=== PATIENT | male | born 1950 | race Caucasian/White ===

== ENCOUNTER → 2017-06-28 14:19 | Outpatient (CLI) | payer MEDICARE, SELFPAY ==
[2017-06-28 15:37] LABS: Protein, Urine (Random) 48.8 mg/dL (<11.9); Protein:Creat Ratio 833 mg/g CRE (0-200)
[2017-06-28 15:48] LABS: BUN 32 mg/dL (7-18); Creatinine, Serum 1.55 mg/dL (0.70-1.30); Glucose 72 mg/dL (74-106)
[2017-06-28 15:49] LABS: Albumin, Serum 3.4 g/dL (3.2-5.0); BUN/Creat Ratio 20.6 RATIO (10-20); Calcium,Total 8.4 mg/dL (8.5-10.1); Chloride 110 mmol/L (98-107); EST Glomerular Filtration Rate 48 mL/min (>60); Est Glom Filt Rate - Afr Amer 57 mL/min (>60); Phosphorus 2.9 mg/dL (2.5-4.9); Potassium 5.2 mmol/L (3.5-5.1); Sodium Level 141 mmol/L (136-145)
[2017-06-28 15:59] LABS: PTHIN 211.6 pg/mL (18.4-80.1)
== END ==
PROVIDERS: Family Provider Family Medicine Geriatric Medicine; PCP Family Medicine Geriatric Medicine; Visit Provider Internal Medicine Nephrology
DX: N18.3 Chronic kidney disease, stage 3 (moderate) (principal); N17.9 Acute kidney failure, unspecified
CPT/HCPCS: 36415; 80069; 82570; 83970; 84156

== ENCOUNTER → 2017-10-26 12:52 | Outpatient (CLI) | payer MEDICARE, SELFPAY ==
[2017-10-26 13:52] LABS: Albumin, Serum 3.5 g/dL (3.2-5.0); BUN 38 mg/dL (7-18); Calcium,Total 8.3 mg/dL (8.5-10.1); Chloride 111 mmol/L (98-107); Creatinine, Serum 1.73 mg/dL (0.70-1.30); EST Glomerular Filtration Rate 42 mL/min (>60); Est Glom Filt Rate - Afr Amer 51 mL/min (>60); Glucose 134 mg/dL (74-106); Phosphorus 2.8 mg/dL (2.5-4.9); Potassium 4.8 mmol/L (3.5-5.1); Sodium Level 142 mmol/L (136-145)
[2017-10-26 14:00] LABS: PTHIN 263.1 pg/mL (18.4-80.1)
[2017-10-26 14:01] LABS: Vitamin D,25 Hydroxy 46.5 ng/mL (29.95-100.01)
== END ==
PROVIDERS: Family Provider Family Medicine Geriatric Medicine; PCP Family Medicine Geriatric Medicine; Visit Provider Internal Medicine Nephrology
DX: N17.9 Acute kidney failure, unspecified (principal); E55.9 Vitamin D deficiency, unspecified; N25.81 Secondary hyperparathyroidism of renal origin
CPT/HCPCS: 36415; 80069; 82306; 83970

== ENCOUNTER → 2017-11-02 11:15 | Outpatient (CLI) | payer MEDICARE, SELFPAY ==
[2017-11-02 12:47] LABS: Absolute Lymphocyte Count 1.05 X10^3/ul (0.83-4.51); Absolute Neutrophil Count 4.2 X10^3/uL (2.0-7.7); Basophil# 0.01 X10^3/uL; Basophil% 0.2 % (0-1); Eosinophil# 0.43 X10^3/uL; Eosinophils% 7.1 % (0-5); Hematocrit 44.5 % (40-54); Hemoglobin 14.5 g/dl (13.0-16.5); Lymphocyte # 1.05 X10^3/ul (4.0); Lymphocyte % 17.4 % (19-41); Mean Corp Hgb Conc 32.6 g/gl (32-36); Mean Corpuscular Volume 98.2 fL (80-94); Mean Platelet Vol. 9.7 fl (6.2-12.0); Monocyte# 0.37 X10^3/uL; Monocyte% 6.1 % (0-10); Neutrophil # 4.19 X10^3/uL (2.7-7.7); Neutrophil % 69.2 % (47-70); POSITIVE COUNT NO; POSITIVE DIFFERENTIAL NO; POSITIVE MORPHOLOGY NO; Platelet Count 176 K/mm3 (150-450); RBC Distribution Width CV 13.2 % (11.6-14.6); Red Blood Count 4.53 M/mm3 (4.6-6.2); White Blood Count 6.1 K/mm3 (4.4-11.0)
[2017-11-02 13:10] LABS: ALB/GLOB Ratio 0.9 RATIO (0.9-2.4); AST(SGOT) 19 U/L (15-37); Alanine Aminotransfer ALT/SGPT 30 U/L (16-61); Albumin, Serum 3.2 g/dL (3.2-5.0); Alkaline Phosphatase 125 U/L (45-117); Anion Gap 7 (5-15); BUN 23 mg/dL (7-18); Calcium,Total 7.9 mg/dL (8.5-10.1); Chloride 108 mmol/L (98-107); Creatinine, Serum 1.44 mg/dL (0.70-1.30); EST Glomerular Filtration Rate 52 mL/min (>60); Est Glom Filt Rate - Afr Amer 62 mL/min (>60); Globulin 3.6 g/dL (2.2-4.2); Glucose 112 mg/dL (74-106); Protein, Total 6.8 g/dL (6.4-8.2); Sodium Level 138 mmol/L (136-145); Thyroid Stim Hormone (TSH) 3.42 uIU/mL (0.358-3.74)
[2017-11-03 09:02] LABS: Vitamin D,25 Hydroxy 35.4 ng/mL (29.95-100.01)
== END ==
PROVIDERS: Family Provider Family Medicine Geriatric Medicine; PCP Family Medicine Geriatric Medicine; Visit Provider Family Medicine Geriatric Medicine
DX: E11.9 Type 2 diabetes mellitus without complications (principal); I10 Essential (primary) hypertension; E55.9 Vitamin D deficiency, unspecified
CPT/HCPCS: 36415; 80053; 82306; 84443; 85025

== ENCOUNTER → 2018-02-27 11:32 | Outpatient (CLI) | payer MEDICARE, SELFPAY ==
[2018-02-27 12:30] LABS: Hematocrit 43.4 % (40-54); Hemoglobin 14.2 g/dl (13.0-16.5); Mean Corp Hgb Conc 32.7 g/gl (32-36); Mean Corpuscular Hgb 31.9 pg (27.0-32.0); Mean Corpuscular Volume 97.5 fL (80-94); Mean Platelet Vol. 9.9 fl (6.2-12.0); Platelet Count 167 K/mm3 (150-450); RBC Distribution Width CV 13.1 % (11.6-14.6); RBC Distribution Width SD 46.6 fl (35.1-43.9); Red Blood Count 4.45 M/mm3 (4.6-6.2)
[2018-02-27 12:33] LABS: Scan Indicated on CBC? Y/N NO
[2018-02-27 12:52] LABS: Albumin, Serum 3.2 g/dL (3.2-5.0); BUN 36 mg/dL (7-18); BUN/Creat Ratio 23.1 RATIO (10-20); Calcium,Total 8.1 mg/dL (8.5-10.1); Chloride 106 mmol/L (98-107); Creatinine, Serum 1.56 mg/dL (0.70-1.30); EST Glomerular Filtration Rate 47 mL/min (>60); Est Glom Filt Rate - Afr Amer 57 mL/min (>60); Glucose 136 mg/dL (74-106); Potassium 4.5 mmol/L (3.5-5.1); Sodium Level 137 mmol/L (136-145)
[2018-02-27 12:53] LABS: Protein, Urine (Random) 23.4 mg/dL (<11.9); Protein:Creat Ratio 619 mg/g CRE (0-200)
[2018-02-27 12:59] LABS: PTHIN 186.9 pg/mL (18.4-80.1)
== END ==
PROVIDERS: Family Provider Family Medicine Geriatric Medicine; PCP Family Medicine Geriatric Medicine; Referring Provider Internal Medicine Nephrology; Visit Provider Internal Medicine Nephrology
DX: E11.22 Type 2 diabetes mellitus with diabetic chronic kidney disease (principal); N18.3 Chronic kidney disease, stage 3 (moderate); N25.81 Secondary hyperparathyroidism of renal origin
CPT/HCPCS: 36415; 80069; 82570; 83970; 84156; 85027

== ENCOUNTER → 2018-03-07 11:29 | Outpatient (CLI) | payer MEDICARE, SELFPAY ==
[2018-03-07 12:40] LABS: Absolute Lymphocyte Count 1.25 X10^3/ul (0.83-4.51); Absolute Neutrophil Count 5.5 X10^3/uL (2.0-7.7); Basophil# 0.02 X10^3/uL; Basophil% 0.3 % (0-1); Eosinophil# 0.49 X10^3/uL; Eosinophils% 6.4 % (0-5); Hematocrit 44.5 % (40-54); Hemoglobin 14.7 g/dl (13.0-16.5); Lymphocyte # 1.25 X10^3/ul (4.0); Lymphocyte % 16.2 % (19-41); Mean Corpuscular Hgb 32.4 pg (27.0-32.0); Monocyte# 0.44 X10^3/uL; Monocyte% 5.7 % (0-10); Neutrophil % 71.3 % (47-70); Platelet Count 186 K/mm3 (150-450); RBC Distribution Width CV 12.9 % (11.6-14.6); RBC Distribution Width SD 44.8 fl (35.1-43.9); Red Blood Count 4.54 M/mm3 (4.6-6.2); White Blood Count 7.7 K/mm3 (4.4-11.0)
[2018-03-07 12:50] LABS: POSITIVE COUNT NO; POSITIVE DIFFERENTIAL NO; POSITIVE MORPHOLOGY NO
[2018-03-07 13:12] LABS: ALB/GLOB Ratio 0.9 RATIO (0.9-2.4); AST(SGOT) 20 U/L (15-37); Alanine Aminotransfer ALT/SGPT 32 U/L (16-61); Albumin, Serum 3.3 g/dL (3.2-5.0); Alkaline Phosphatase 116 U/L (45-117); Anion Gap 9 (5-15); BUN 47 mg/dL (7-18); BUN/Creat Ratio 26.9 RATIO (10-20); Calcium,Total 8.4 mg/dL (8.5-10.1); Chloride 107 mmol/L (98-107); Creatinine, Serum 1.75 mg/dL (0.70-1.30); EST Glomerular Filtration Rate 41 mL/min (>60); Est Glom Filt Rate - Afr Amer 50 mL/min (>60); Globulin 3.7 g/dL (2.2-4.2); Glucose 173 mg/dL (74-106); PSA,Total - Annual Screen 0.93 ng/mL (0.00-4.00); Potassium 4.8 mmol/L (3.5-5.1); Sodium Level 140 mmol/L (136-145); Thyroid Stim Hormone (TSH) 3.36 uIU/mL (0.358-3.74)
[2018-03-08 08:20] LABS: Hep C Antibodies 0.2 s/co ratio (0.0-0.9)
== END ==
PROVIDERS: Family Provider Family Medicine Geriatric Medicine; PCP Family Medicine Geriatric Medicine; Visit Provider Family Medicine Geriatric Medicine
DX: E11.9 Type 2 diabetes mellitus without complications (principal); I10 Essential (primary) hypertension; E55.9 Vitamin D deficiency, unspecified; Z12.5 Encounter for screening for malignant neoplasm of prostate
CPT/HCPCS: 36415; 80053; 82306; 84153; 84443; 85025; 86803; G0103

== ENCOUNTER → 2018-09-07 14:26 | Outpatient (CLI) | payer MEDICARE, SELFPAY ==
[2018-09-07 15:48] LABS: Protein, Urine (Random) 55.9 mg/dL (<11.9); Protein:Creat Ratio 1495 mg/g CRE (0-200)
[2018-09-07 16:13] LABS: Albumin, Serum 3.4 g/dL (3.2-5.0); BUN 23 mg/dL (7-18); BUN/Creat Ratio 16.1 RATIO (10-20); Calcium,Total 8.1 mg/dL (8.5-10.1); Chloride 110 mmol/L (98-107); Creatinine, Serum 1.43 mg/dL (0.70-1.30); EST Glomerular Filtration Rate 52 mL/min (>60); Est Glom Filt Rate - Afr Amer 63 mL/min (>60); Glucose 103 mg/dL (74-106); Phosphorus 2.2 mg/dL (2.5-4.9); Potassium 4.4 mmol/L (3.5-5.1); Sodium Level 139 mmol/L (136-145)
[2018-09-07 16:25] LABS: PTHIN 275.9 pg/mL (18.4-80.1)
== END ==
PROVIDERS: Family Provider Family Medicine Geriatric Medicine; PCP Family Medicine Geriatric Medicine; Referring Provider Internal Medicine Nephrology; Visit Provider Internal Medicine Nephrology
DX: E11.22 Type 2 diabetes mellitus with diabetic chronic kidney disease (principal); N18.3 Chronic kidney disease, stage 3 (moderate); N25.81 Secondary hyperparathyroidism of renal origin
CPT/HCPCS: 36415; 80069; 82570; 83970; 84156

== ENCOUNTER → 2018-09-12 11:48 | Outpatient (CLI) | payer MEDICARE, SELFPAY ==
[2018-09-12 13:18] LABS: Absolute Lymphocyte Count 1.24 X10^3/ul (0.83-4.51); Absolute Neutrophil Count 5.3 X10^3/uL (2.0-7.7); Basophil# 0.03 X10^3/uL; Basophil% 0.4 % (0-1); Eosinophil# 0.42 X10^3/uL; Eosinophils% 5.7 % (0-5); Hematocrit 44.9 % (40-54); Hemoglobin 14.9 g/dl (13.0-16.5); Lymphocyte # 1.24 X10^3/ul (4.0); Lymphocyte % 16.8 % (19-41); Mean Corp Hgb Conc 33.2 g/gl (32-36); Mean Corpuscular Volume 96.4 fL (80-94); Mean Platelet Vol. 9.9 fl (6.2-12.0); Monocyte% 5.4 % (0-10); Neutrophil # 5.27 X10^3/uL (2.7-7.7); Neutrophil % 71.4 % (47-70); Platelet Count 179 K/mm3 (150-450); RBC Distribution Width CV 13.4 % (11.6-14.6); RBC Distribution Width SD 46.6 fl (35.1-43.9); Red Blood Count 4.66 M/mm3 (4.6-6.2); White Blood Count 7.4 K/mm3 (4.4-11.0)
[2018-09-12 13:25] LABS: POSITIVE COUNT NO; POSITIVE DIFFERENTIAL NO; POSITIVE MORPHOLOGY NO
[2018-09-12 13:32] LABS: ALB/GLOB Ratio 0.9 RATIO (0.9-2.4); AST(SGOT) 23 U/L (15-37); Alanine Aminotransfer ALT/SGPT 27 U/L (16-61); Albumin, Serum 3.2 g/dL (3.2-5.0); Alkaline Phosphatase 126 U/L (45-117); Anion Gap 5 (5-15); BUN 28 mg/dL (7-18); BUN/Creat Ratio 17.8 RATIO (10-20); Calcium,Total 8.6 mg/dL (8.5-10.1); Chloride 111 mmol/L (98-107); Creatinine, Serum 1.57 mg/dL (0.70-1.30); EST Glomerular Filtration Rate 47 mL/min (>60); Est Glom Filt Rate - Afr Amer 56 mL/min (>60); Globulin 3.7 g/dL (2.2-4.2); Glucose 140 mg/dL (74-106); Potassium 5.2 mmol/L (3.5-5.1); Protein, Total 6.9 g/dL (6.4-8.2); Sodium Level 138 mmol/L (136-145); Thyroid Stim Hormone (TSH) 3.56 uIU/mL (0.358-3.74)
[2018-09-12 13:49] LABS: Vitamin D,25 Hydroxy 46.2 ng/mL (29.95-100.01)
== END ==
PROVIDERS: Family Provider Family Medicine Geriatric Medicine; PCP Family Medicine Geriatric Medicine; Visit Provider Family Medicine Geriatric Medicine
DX: E11.9 Type 2 diabetes mellitus without complications (principal); I10 Essential (primary) hypertension; E55.9 Vitamin D deficiency, unspecified
CPT/HCPCS: 36415; 80053; 82306; 84403; 84443; 85025

== ENCOUNTER → 2018-10-19 13:37 | Outpatient (CLI) | payer MEDICARE, SELFPAY ==
[2018-10-19 15:18] LABS: Anion Gap 9 (5-15); BUN 24 mg/dL (7-18); BUN/Creat Ratio 15.4 RATIO (10-20); Calcium,Total 8.5 mg/dL (8.5-10.1); Chloride 109 mmol/L (98-107); Creatinine, Serum 1.56 mg/dL (0.70-1.30); EST Glomerular Filtration Rate 47 mL/min (>60); Est Glom Filt Rate - Afr Amer 57 mL/min (>60); Glucose 101 mg/dL (74-106); Potassium 4.3 mmol/L (3.5-5.1); Sodium Level 141 mmol/L (136-145)
== END ==
PROVIDERS: Family Provider Family Medicine Geriatric Medicine; PCP Family Medicine Geriatric Medicine; Referring Provider Internal Medicine Nephrology; Visit Provider Internal Medicine Nephrology
DX: E87.5 Hyperkalemia (principal)
CPT/HCPCS: 36415; 80048

== ENCOUNTER → 2019-02-15 14:31 | Outpatient (CLI) | payer MEDICARE, SELFPAY ==
[2019-02-15 15:05] LABS: Protein, Urine (Random) 37.8 mg/dL (<11.9); Protein:Creat Ratio 977 mg/g CRE (0-200)
[2019-02-15 15:21] LABS: Albumin, Serum 3.5 g/dL (3.2-5.0); BUN 26 mg/dL (7-18); BUN/Creat Ratio 17.8 RATIO (10-20); Calcium,Total 9.2 mg/dL (8.5-10.1); Chloride 108 mmol/L (98-107); Creatinine, Serum 1.46 mg/dL (0.70-1.30); EST Glomerular Filtration Rate 51 mL/min (>60); Est Glom Filt Rate - Afr Amer 61 mL/min (>60); Glucose 117 mg/dL (74-106); Phosphorus 3.4 mg/dL (2.5-4.9); Potassium 4.4 mmol/L (3.5-5.1); Sodium Level 138 mmol/L (136-145)
[2019-02-15 15:31] LABS: PTHIN 71.5 pg/mL (18.4-80.1); Vitamin D,25 Hydroxy 43.9 ng/mL (29.95-100.01)
== END ==
PROVIDERS: Family Provider Family Medicine Geriatric Medicine; PCP Family Medicine Geriatric Medicine; Referring Provider Internal Medicine Nephrology; Visit Provider Internal Medicine Nephrology
DX: E11.22 Type 2 diabetes mellitus with diabetic chronic kidney disease (principal); N18.3 Chronic kidney disease, stage 3 (moderate); N25.81 Secondary hyperparathyroidism of renal origin; E55.9 Vitamin D deficiency, unspecified
CPT/HCPCS: 36415; 80069; 82306; 82570; 83970; 84156

== ENCOUNTER → 2019-03-12 11:56 | Outpatient (CLI) | payer MEDICARE, SELFPAY ==
[2019-03-12 12:42] LABS: Absolute Lymphocyte Count 1.09 X10^3/uL (0.83-4.51); Basophil# 0.04 X10^3/uL; Basophil% 0.6 % (0-1); Eosinophil# 0.59 X10^3/uL; Eosinophils% 8.3 % (0-5); Hematocrit 43.6 % (40-54); Hemoglobin 14.6 g/dL (13.0-16.5); Lymphocyte # 1.09 X10^3/ul (4.0); Lymphocyte % 15.4 % (19-41); Mean Corp Hgb Conc 33.5 g/dL (32-36); Mean Corpuscular Hgb 32.9 pg (27.0-32.0); Mean Corpuscular Volume 98.2 fL (80-94); Monocyte% 5.6 % (0-10); NRBC Flagged by Analyzer 0 % (0-5); Neutrophil # 4.95 X10^3/uL (2.7-7.7); Neutrophil % 69.8 % (47-70); Platelet Count 159 K/mm3 (150-450); RBC Distribution Width CV 12.6 % (11.6-14.6); RBC Distribution Width SD 45.5 fl (35.1-43.9); Red Blood Count 4.44 M/mm3 (4.6-6.2); White Blood Count 7.1 K/mm3 (4.4-11.0)
[2019-03-12 13:04] LABS: Vitamin D,25 Hydroxy 48.5 ng/mL (29.95-100.01)
[2019-03-12 13:17] LABS: ALB/GLOB Ratio 0.9 RATIO (0.9-2.4); AST(SGOT) 25 U/L (15-37); Alanine Aminotransfer ALT/SGPT 26 U/L (16-61); Albumin, Serum 3.3 g/dL (3.2-5.0); Alkaline Phosphatase 94 U/L (45-117); Anion Gap 8 (5-15); BUN 37 mg/dL (7-18); BUN/Creat Ratio 21.6 RATIO (10-20); Calcium,Total 8.9 mg/dL (8.5-10.1); Chloride 106 mmol/L (98-107); Creatinine, Serum 1.71 mg/dL (0.70-1.30); EST Glomerular Filtration Rate 42 mL/min (>60); Est Glom Filt Rate - Afr Amer 51 mL/min (>60); Globulin 3.5 g/dL (2.2-4.2); Glucose 162 mg/dL (74-106); PSA,Total - Annual Screen 0.81 ng/mL (0.00-4.00); Potassium 4.3 mmol/L (3.5-5.1); Protein, Total 6.8 g/dL (6.4-8.2); Sodium Level 137 mmol/L (136-145); Thyroid Stim Hormone (TSH) 3.18 uIU/mL (0.358-3.74)
== END ==
PROVIDERS: Family Provider Family Medicine Geriatric Medicine; PCP Family Medicine Geriatric Medicine; Visit Provider Family Medicine Geriatric Medicine
DX: E11.9 Type 2 diabetes mellitus without complications (principal); I10 Essential (primary) hypertension; E55.9 Vitamin D deficiency, unspecified; Z12.5 Encounter for screening for malignant neoplasm of prostate
CPT/HCPCS: 36415; 80053; 82306; 84153; 84443; 85025; G0103

== ENCOUNTER → 2019-04-25 11:51 | Outpatient (CLI) | payer MEDICARE, SELFPAY ==
[2019-04-25 13:07] LABS: PTHIN 117.4 pg/mL (18.4-80.1)
== END ==
PROVIDERS: Family Provider Family Medicine Geriatric Medicine; PCP Family Medicine Geriatric Medicine; Visit Provider Internal Medicine Nephrology
DX: N25.81 Secondary hyperparathyroidism of renal origin (principal)
CPT/HCPCS: 36415; 83970

== ENCOUNTER → 2019-09-12 14:18 | Outpatient (CLI) | payer MEDICARE, SELFPAY ==
[2019-09-12 15:10] LABS: Protein, Urine (Random) 63.6 mg/dL (<11.9); Protein:Creat Ratio 1078 mg/g CRE (0-200)
[2019-09-12 15:31] LABS: Albumin, Serum 3.1 g/dL (3.2-5.0); BUN 34 mg/dL (7-18); BUN/Creat Ratio 21.5 RATIO (10-20); Calcium,Total 8.2 mg/dL (8.5-10.1); Chloride 112 mmol/L (98-107); Creatinine, Serum 1.58 mg/dL (0.70-1.30); EST Glomerular Filtration Rate 46 mL/min (>60); Est Glom Filt Rate - Afr Amer 56 mL/min (>60); Glucose 112 mg/dL (74-106); Potassium 4.8 mmol/L (3.5-5.1); Sodium Level 140 mmol/L (136-145)
[2019-09-12 15:34] LABS: Vitamin D,25 Hydroxy 40.8 ng/mL
[2019-09-13 08:48] LABS: PTHIN 171.7 pg/mL (18.4-80.1)
== END ==
PROVIDERS: PCP Family Medicine Geriatric Medicine; Visit Provider Internal Medicine Nephrology
DX: E11.22 Type 2 diabetes mellitus with diabetic chronic kidney disease (principal); N18.3 Chronic kidney disease, stage 3 (moderate); N25.81 Secondary hyperparathyroidism of renal origin; E55.9 Vitamin D deficiency, unspecified
CPT/HCPCS: 36415; 80069; 82306; 82570; 83970; 84156

== ENCOUNTER → 2019-09-17 12:15 | Outpatient (CLI) | payer MEDICARE, SELFPAY ==
[2019-09-17 12:54] LABS: Absolute Lymphocyte Count 1.34 X10^3/uL (0.83-4.51); Absolute Neutrophil Count 4.4 X10^3/uL (2.0-7.7); Basophil# 0.03 X10^3/uL; Basophil% 0.5 % (0-1); Eosinophil# 0.25 X10^3/uL; Eosinophils% 3.9 % (0-5); Hematocrit 43.3 % (40-54); Lymphocyte # 1.34 X10^3/ul (4.0); Lymphocyte % 20.7 % (19-41); Mean Corp Hgb Conc 32.3 g/dL (32-36); Mean Corpuscular Hgb 32.2 pg (27.0-32.0); Mean Corpuscular Volume 99.5 fL (80-94); Mean Platelet Vol. 9.6 fl (6.2-12.0); Monocyte# 0.47 X10^3/uL; Monocyte% 7.3 % (0-10); NRBC Flagged by Analyzer 0 % (0-5); Neutrophil # 4.37 X10^3/uL (2.7-7.7); Neutrophil % 67.3 % (47-70); Platelet Count 166 K/mm3 (150-450); RBC Distribution Width CV 13.1 % (11.6-14.6); RBC Distribution Width SD 47.9 fl (35.1-43.9); Red Blood Count 4.35 M/mm3 (4.6-6.2); White Blood Count 6.5 K/mm3 (4.4-11.0)
[2019-09-17 13:17] LABS: ALB/GLOB Ratio 0.8 RATIO (0.9-2.4); AST(SGOT) 26 U/L (15-37); Alanine Aminotransfer ALT/SGPT 28 U/L (16-61); Albumin, Serum 2.9 g/dL (3.2-5.0); Alkaline Phosphatase 108 U/L (45-117); Anion Gap 7 (5-15); BUN 39 mg/dL (7-18); BUN/Creat Ratio 21.5 RATIO (10-20); Calcium,Total 8.3 mg/dL (8.5-10.1); Chloride 108 mmol/L (98-107); Creatinine, Serum 1.81 mg/dL (0.70-1.30); EST Glomerular Filtration Rate 39 mL/min (>60); Est Glom Filt Rate - Afr Amer 48 mL/min (>60); Globulin 3.5 g/dL (2.2-4.2); Glucose 109 mg/dL (74-106); Potassium 4.9 mmol/L (3.5-5.1); Protein, Total 6.4 g/dL (6.4-8.2); Sodium Level 136 mmol/L (136-145); Thyroid Stim Hormone (TSH) 2.48 uIU/mL (0.358-3.74)
[2019-09-17 13:29] LABS: Vitamin D,25 Hydroxy 39.6 ng/mL
== END ==
PROVIDERS: PCP Family Medicine Geriatric Medicine; Visit Provider Family Medicine Geriatric Medicine
DX: E11.9 Type 2 diabetes mellitus without complications (principal); E55.9 Vitamin D deficiency, unspecified; I10 Essential (primary) hypertension
CPT/HCPCS: 36415; 80053; 82306; 84443; 85025

== ENCOUNTER → 2019-10-17 15:03 | Outpatient (CLI) | payer MEDICARE, SELFPAY ==
[2019-10-17 17:14] LABS: Albumin, Serum 3.1 g/dL (3.2-5.0); BUN 32 mg/dL (7-18); BUN/Creat Ratio 21.5 RATIO (10-20); Calcium,Total 8.6 mg/dL (8.5-10.1); Chloride 105 mmol/L (98-107); Creatinine, Serum 1.49 mg/dL (0.70-1.30); EST Glomerular Filtration Rate 49 mL/min (>60); Est Glom Filt Rate - Afr Amer 60 mL/min (>60); Glucose 135 mg/dL (74-106); Phosphorus 2.8 mg/dL (2.5-4.9); Potassium 4.1 mmol/L (3.5-5.1); Sodium Level 138 mmol/L (136-145)
== END ==
PROVIDERS: PCP Family Medicine Geriatric Medicine; Referring Provider Internal Medicine Nephrology; Visit Provider Internal Medicine Nephrology
DX: N18.3 Chronic kidney disease, stage 3 (moderate) (principal); N25.81 Secondary hyperparathyroidism of renal origin
CPT/HCPCS: 36415; 80069

== ENCOUNTER → 2020-01-17 14:21 | Outpatient (CLI) | payer MEDICARE, SELFPAY ==
[2020-01-17 15:11] LABS: Albumin, Serum 3.4 g/dL (3.2-5.0); BUN 22 mg/dL (7-18); BUN/Creat Ratio 14.6 RATIO (10-20); Chloride 107 mmol/L (98-107); Creatinine, Serum 1.51 mg/dL (0.70-1.30); EST Glomerular Filtration Rate 49 mL/min (>60); Est Glom Filt Rate - Afr Amer 59 mL/min (>60); Glucose 160 mg/dL (74-106); PTHIN 192.8 pg/mL (18.4-80.1); Phosphorus 2.6 mg/dL (2.5-4.9); Potassium 4.7 mmol/L (3.5-5.1); Sodium Level 138 mmol/L (136-145)
== END ==
PROVIDERS: PCP Family Medicine Geriatric Medicine; Referring Provider Internal Medicine Nephrology; Visit Provider Internal Medicine Nephrology
DX: N18.3 Chronic kidney disease, stage 3 (moderate) (principal); N25.81 Secondary hyperparathyroidism of renal origin
CPT/HCPCS: 36415; 80069; 83970

== ENCOUNTER → 2020-03-17 10:59 | Outpatient (CLI) | payer MEDICARE, SELFPAY ==
[2020-03-17 12:14] LABS: Absolute Lymphocyte Count 1.62 X10^3/uL (0.83-4.51); Absolute Neutrophil Count 6.1 X10^3/uL (2.0-7.7); Basophil# 0.03 X10^3/uL; Basophil% 0.3 % (0-1); Eosinophil# 0.42 X10^3/uL; Eosinophils% 4.8 % (0-5); Hematocrit 45.7 % (40-54); Lymphocyte # 1.62 X10^3/ul (4.0); Lymphocyte % 18.6 % (19-41); Mean Corp Hgb Conc 32.8 g/dL (32-36); Mean Corpuscular Hgb 32.8 pg (27.0-32.0); Mean Corpuscular Volume 99.8 fL (80-94); Monocyte# 0.58 X10^3/uL; Monocyte% 6.7 % (0-10); NRBC Flagged by Analyzer 0 % (0-5); Neutrophil # 6.05 X10^3/uL (2.7-7.7); Neutrophil % 69.4 % (47-70); Platelet Count 203 K/mm3 (150-450); RBC Distribution Width CV 13.1 % (11.6-14.6); RBC Distribution Width SD 47.8 fl (35.1-43.9); Red Blood Count 4.58 M/mm3 (4.6-6.2); White Blood Count 8.7 K/mm3 (4.4-11.0)
[2020-03-17 12:32] LABS: Vitamin D,25 Hydroxy 57.3 ng/mL
[2020-03-17 12:33] LABS: ALB/GLOB Ratio 0.9 RATIO (0.9-2.4); AST(SGOT) 23 U/L (15-37); Alanine Aminotransfer ALT/SGPT 30 U/L (16-61); Albumin, Serum 3.3 g/dL (3.2-5.0); Alkaline Phosphatase 132 U/L (45-117); Anion Gap 9 (5-15); BUN 35 mg/dL (7-18); BUN/Creat Ratio 20.6 RATIO (10-20); Calcium,Total 8.6 mg/dL (8.5-10.1); Chloride 108 mmol/L (98-107); EST Glomerular Filtration Rate 42 mL/min (>60); Est Glom Filt Rate - Afr Amer 51 mL/min (>60); Globulin 3.6 g/dL (2.2-4.2); Glucose 176 mg/dL (74-106); Potassium 4.6 mmol/L (3.5-5.1); Protein, Total 6.9 g/dL (6.4-8.2); Sodium Level 138 mmol/L (136-145); Thyroid Stim Hormone (TSH) 3.67 uIU/mL (0.358-3.74)
== END ==
PROVIDERS: PCP Family Medicine Geriatric Medicine; Visit Provider Family Medicine Geriatric Medicine
DX: I10 Essential (primary) hypertension (principal); E11.9 Type 2 diabetes mellitus without complications; E55.9 Vitamin D deficiency, unspecified
CPT/HCPCS: 36415; 80053; 82306; 84443; 85025

== ENCOUNTER → 2020-07-01 14:41 | Outpatient (CLI) | payer MEDICARE, SELFPAY ==
[2020-07-01 16:34] LABS: Albumin, Serum 2.9 g/dL (3.2-5.0); BUN 34 mg/dL (7-18); BUN/Creat Ratio 20.2 RATIO (10-20); Calcium,Total 8.2 mg/dL (8.5-10.1); Chloride 109 mmol/L (98-107); Creatinine, Serum 1.68 mg/dL (0.70-1.30); EST Glomerular Filtration Rate 43 mL/min (>60); Est Glom Filt Rate - Afr Amer 52 mL/min (>60); Glucose 108 mg/dL (74-106); Phosphorus 2.9 mg/dL (2.5-4.9); Potassium 4.4 mmol/L (3.5-5.1); Sodium Level 141 mmol/L (136-145); Vitamin D,25 Hydroxy 34.6 ng/mL
[2020-07-02 08:29] LABS: PTHIN 158.5 pg/mL (18.4-80.1)
== END ==
PROVIDERS: PCP Family Medicine Geriatric Medicine; Visit Provider Internal Medicine Nephrology
DX: E11.22 Type 2 diabetes mellitus with diabetic chronic kidney disease (principal); N18.30 Chronic kidney disease, stage 3 unspecified; E55.9 Vitamin D deficiency, unspecified; N25.81 Secondary hyperparathyroidism of renal origin
CPT/HCPCS: 36415; 80069; 82306; 83970

== ENCOUNTER → 2020-07-07 11:53 | Outpatient (CLI) | payer MEDICARE, SELFPAY ==
[2020-07-07 12:39] LABS: Protein, Urine (Random) 232.9 mg/dL (<11.9); Protein:Creat Ratio 3164 mg/g CRE (0-200)
== END ==
PROVIDERS: PCP Family Medicine Geriatric Medicine; Visit Provider Family Medicine Geriatric Medicine
DX: E11.22 Type 2 diabetes mellitus with diabetic chronic kidney disease (principal); N18.30 Chronic kidney disease, stage 3 unspecified; N25.81 Secondary hyperparathyroidism of renal origin
CPT/HCPCS: 82570; 84156

== ENCOUNTER → 2020-08-11 15:44 | Outpatient (CLI) | payer MEDICARE, SELFPAY ==
[2020-08-11 17:08] LABS: PSA,Total - Annual Screen 0.71 ng/mL (0.00-4.00)
== END ==
PROVIDERS: PCP Family Medicine Geriatric Medicine; Referring Provider Urology; Visit Provider Urology
DX: Z12.5 Encounter for screening for malignant neoplasm of prostate (principal)
CPT/HCPCS: 36415; 84153; G0103

== ENCOUNTER → 2020-09-15 12:01 | Outpatient (CLI) | payer MEDICARE, SELFPAY ==
[2020-09-15 12:23] LABS: Absolute Lymphocyte Count 1.21 X10^3/uL (0.83-4.51); Absolute Neutrophil Count 4.6 X10^3/uL (2.0-7.7); Basophil# 0.03 X10^3/uL; Basophil% 0.4 % (0-1); Eosinophil# 0.42 X10^3/uL; Eosinophils% 6.2 % (0-5); Hemoglobin 14.3 g/dL (13.0-16.5); Lymphocyte # 1.21 X10^3/ul (0.83-4.51); Lymphocyte % 17.9 % (19-41); Mean Corp Hgb Conc 32.5 g/dL (32-36); Mean Corpuscular Hgb 31.6 pg (27.0-32.0); Mean Corpuscular Volume 97.3 fL (80-94); Monocyte# 0.48 X10^3/uL; Monocyte% 7.1 % (0-10); NRBC Flagged by Analyzer 0 % (0-5); Neutrophil # 4.61 X10^3/uL (2.7-7.7); Neutrophil % 68.3 % (47-70); Platelet Count 160 K/mm3 (150-450); RBC Distribution Width SD 46.5 fl (35.1-43.9); Red Blood Count 4.52 M/mm3 (4.6-6.2); White Blood Count 6.8 K/mm3 (4.4-11.0)
[2020-09-15 13:02] LABS: ALB/GLOB Ratio 0.8 RATIO (0.9-2.4); AST(SGOT) 21 U/L (15-37); Alanine Aminotransfer ALT/SGPT 17 U/L (16-61); Albumin, Serum 2.8 g/dL (3.2-5.0); Alkaline Phosphatase 100 U/L (45-117); Anion Gap 6 (5-15); BUN 28 mg/dL (7-18); BUN/Creat Ratio 15.8 RATIO (10-20); Calcium,Total 8.2 mg/dL (8.5-10.1); Chloride 111 mmol/L (98-107); Creatinine, Serum 1.77 mg/dL (0.70-1.30); EST Glomerular Filtration Rate 40 mL/min (>60); Est Glom Filt Rate - Afr Amer 49 mL/min (>60); Globulin 3.5 g/dL (2.2-4.2); Glucose 144 mg/dL (74-106); Potassium 4.7 mmol/L (3.5-5.1); Protein, Total 6.3 g/dL (6.4-8.2); Sodium Level 140 mmol/L (136-145); Thyroid Stim Hormone (TSH) 3.72 uIU/mL (0.358-3.74)
[2020-09-17 12:50] LABS: Vitamin D,25 Hydroxy 38.2 ng/mL
== END ==
PROVIDERS: PCP Family Medicine Geriatric Medicine; Visit Provider Family Medicine Geriatric Medicine
DX: E11.9 Type 2 diabetes mellitus without complications (principal); E55.9 Vitamin D deficiency, unspecified; I10 Essential (primary) hypertension
CPT/HCPCS: 36415; 80053; 82306; 84443; 85025

== ENCOUNTER → 2020-11-06 14:28 | Outpatient (CLI) | payer MEDICARE, SELFPAY ==
[2020-11-06 15:15] LABS: Hematocrit 45.9 % (40-54); Hemoglobin 14.9 g/dL (13.0-16.5); Mean Corp Hgb Conc 32.5 g/dL (32-36); Mean Corpuscular Hgb 32.1 pg (27.0-32.0); Mean Corpuscular Volume 98.9 fL (80-94); Mean Platelet Vol. 9.9 fl (6.2-12.0); Platelet Count 189 K/mm3 (150-450); RBC Distribution Width CV 13.2 % (11.6-14.6); Red Blood Count 4.64 M/mm3 (4.6-6.2); White Blood Count 7.7 K/mm3 (4.4-11.0)
[2020-11-06 15:58] LABS: PTHIN 241.8 pg/mL (18.4-80.1)
[2020-11-06 16:09] LABS: Albumin, Serum 3.1 g/dL (3.2-5.0); BUN 35 mg/dL (7-18); BUN/Creat Ratio 18.2 RATIO (10-20); Calcium,Total 8.3 mg/dL (8.5-10.1); Chloride 108 mmol/L (98-107); Creatinine, Serum 1.92 mg/dL (0.70-1.30); EST Glomerular Filtration Rate 37 mL/min (>60); Est Glom Filt Rate - Afr Amer 44 mL/min (>60); Glucose 132 mg/dL (74-106); Phosphorus 2.3 mg/dL (2.5-4.9); Potassium 4.6 mmol/L (3.5-5.1); Sodium Level 139 mmol/L (136-145)
== END ==
PROVIDERS: PCP Family Medicine Geriatric Medicine; Visit Provider Internal Medicine Nephrology
DX: N18.30 Chronic kidney disease, stage 3 unspecified (principal); N25.81 Secondary hyperparathyroidism of renal origin
CPT/HCPCS: 36415; 80069; 83970; 85027

== ENCOUNTER → 2020-12-22 13:47 | Outpatient (CLI) | payer MEDICARE, SELFPAY ==
--- NOTE | 2020-12-22 13:50 | RAD_ITS ---
History: Pain Right knee 4 views: Findings: No acute fracture, subluxation or joint effusion. Mild to moderate osteophytosis. No significant joint space narrowing. IMPRESSION: No acute abnormality. Osteophytosis. at 1614 Reported and signed by: Luiz Sesay MD Electronically Signed: Luiz Sesay MD at 16:12 EDT Tel , Service support , RAD/Knee 4 or More Views
--- NOTE | 2020-12-22 13:50 | RAD_ITS ---
INDICATION: PAIN IN R LEG EXAMINATION/TECHNIQUE: X-RAY - XR Spine Lumbar 2 or 3 Views COMPARISON: None. FINDINGS: Straightening of alignment of the columns of the lumbar spine is visualized. Grade 1 anterolisthesis of L5 over S1 is seen. Extensive bridging osteophyte visualized at L4-L5 and to a lesser extent at and T12-L1. Mild depression of the superior endplate of the L4 vertebral body is visualized. Subtle decreased anterior height of the T12-L1 vertebral bodies is seen. Increased density visualized in the posterior column most prominent at L5. Calcification visualized in the abdominal aorta. RAD/Lumbar Spine 2 or 3 Views IMPRESSION: Extensive degenerative changes of the lumbar spine, no acute osseous abnormality seen. Electronically Signed: Edson Lovell MD at 15:29 EDT Tel , Service support ,
--- NOTE | 2020-12-22 13:55 | RAD_ITS ---
INDICATION: PAIN IN R LEG EXAMINATION/TECHNIQUE: X-RAY - RIGHT XR Hip Unilateral with Pelvis when performed; 2-3 Views 3 VIEWS COMPARISON: None. FINDINGS: SOFT TISSUES: No soft tissue swelling or gas. No radiopaque foreign body. BONES/JOINTS: No evidence of cortical irregularity and lucency to suggest a fracture. NNo evidence of dislocation. Degenerative bone changes visualized. Severe narrowing of the superolateral right hip joint space. RAD/HIP, UNI W/ Pelvis 2-3 Views IMPRESSION: Degenerative changes of the left hip, no acute osseous abnormality seen. Electronically Signed: Edson Lovell MD at 15:27 EDT Tel , Service support ,
== END ==
PROVIDERS: PCP Family Medicine Geriatric Medicine; Referring Provider Family Medicine Geriatric Medicine; Visit Provider Family Medicine Geriatric Medicine
DX: M79.604 Pain in right leg (principal)
CPT/HCPCS: 72100; 73502; 73564

== ENCOUNTER → 2021-03-23 12:51 | Outpatient (CLI) | payer MEDICARE, SELFPAY ==
[2021-03-23 13:46] LABS: Absolute Lymphocyte Count 1.33 X10^3/uL (0.83-4.51); Absolute Neutrophil Count 6.3 X10^3/uL (2.0-7.7); Basophil# 0.05 X10^3/uL; Basophil% 0.6 % (0-1); Eosinophil# 0.21 X10^3/uL; Eosinophils% 2.5 % (0-5); Hematocrit 45.4 % (40-54); Hemoglobin 15.1 g/dL (13.0-16.5); Lymphocyte # 1.33 X10^3/ul (0.83-4.51); Lymphocyte % 15.8 % (19-41); Mean Corp Hgb Conc 33.3 g/dL (32-36); Mean Corpuscular Hgb 32.8 pg (27.0-32.0); Mean Corpuscular Volume 98.5 fL (80-94); Mean Platelet Vol. 9.8 fl (6.2-12.0); Monocyte% 5.9 % (0-10); NRBC Flagged by Analyzer 0 % (0-5); Neutrophil # 6.32 X10^3/uL (2.7-7.7); Platelet Count 210 K/mm3 (150-450); RBC Distribution Width CV 13.5 % (11.6-14.6); Red Blood Count 4.61 M/mm3 (4.6-6.2); White Blood Count 8.4 K/mm3 (4.4-11.0)
[2021-03-23 14:21] LABS: Vitamin D,25 Hydroxy 46.8 ng/mL
[2021-03-23 14:23] LABS: ALB/GLOB Ratio 0.8 RATIO (0.9-2.4); AST(SGOT) 20 U/L (15-37); Alanine Aminotransfer ALT/SGPT 17 U/L (16-61); Albumin, Serum 3.1 g/dL (3.2-5.0); Alkaline Phosphatase 126 U/L (45-117); Anion Gap 6 (5-15); BUN 47 mg/dL (7-18); BUN/Creat Ratio 23.7 RATIO (10-20); Calcium,Total 9.2 mg/dL (8.5-10.1); Chloride 106 mmol/L (98-107); Creatinine, Serum 1.98 mg/dL (0.70-1.30); EST Glomerular Filtration Rate 35 mL/min (>60); Est Glom Filt Rate - Afr Amer 43 mL/min (>60); Globulin 3.9 g/dL (2.2-4.2); Glucose 138 mg/dL (74-106); Potassium 4.5 mmol/L (3.5-5.1); Sodium Level 138 mmol/L (136-145); Thyroid Stim Hormone (TSH) 3.63 uIU/mL (0.358-3.74)
[2021-03-23 21:30] LABS: Phosphorus 3.1 mg/dL (2.5-4.9)
[2021-03-24 08:50] LABS: PTHIN 113.5 pg/mL (18.4-80.1)
== END ==
PROVIDERS: PCP Family Medicine Geriatric Medicine; Visit Provider Family Medicine Geriatric Medicine
DX: N18.30 Chronic kidney disease, stage 3 unspecified (principal); N25.81 Secondary hyperparathyroidism of renal origin
CPT/HCPCS: 36415; 80053; 82306; 83970; 84100; 84443; 85025

== ENCOUNTER → 2021-10-01 | Outpatient (CLI) | payer MEDICARE, SELFPAY ==
[2021-10-01 15:53] LABS: Protein, Urine (Random) 45.7 mg/dL (<11.9); Protein:Creat Ratio 1565 mg/g CRE (0-200)
[2021-10-01 16:45] LABS: Albumin, Serum 3.3 g/dL (3.2-5.0); BUN 59 mg/dL (7-18); BUN/Creat Ratio 29.8 RATIO (10-20); Calcium,Total 8.9 mg/dL (8.5-10.1); Chloride 106 mmol/L (98-107); Creatinine, Serum 1.98 mg/dL (0.70-1.30); EST Glomerular Filtration Rate 35 mL/min (>60); Est Glom Filt Rate - Afr Amer 43 mL/min (>60); Glucose 144 mg/dL (74-106); Phosphorus 3.2 mg/dL (2.5-4.9); Potassium 4.5 mmol/L (3.5-5.1); Sodium Level 138 mmol/L (136-145)
[2021-10-04 08:26] LABS: PTHIN 93.5 pg/mL (18.4-80.1)
== END | disposition home or self-care (01) ==
LOC: LAB 14:09
PROVIDERS: PCP Family Medicine Geriatric Medicine; Referring Provider Internal Medicine Nephrology; Visit Provider Internal Medicine Nephrology
DX: E11.22 Type 2 diabetes mellitus with diabetic chronic kidney disease (principal); N25.81 Secondary hyperparathyroidism of renal origin; N18.32 Chronic kidney disease, stage 3b
CPT/HCPCS: 36415; 80069; 82570; 83970; 84156

== ENCOUNTER → 2021-10-05 | Outpatient (CLI) | payer MEDICARE, SELFPAY ==
[2021-10-05 12:36] LABS: Absolute Lymphocyte Count 1.62 X10^3/uL (0.83-4.51); Absolute Neutrophil Count 6.5 X10^3/uL (2.0-7.7); Basophil# 0.05 X10^3/uL; Basophil% 0.5 % (0-1); Eosinophil# 0.29 X10^3/uL; Eosinophils% 3.2 % (0-5); Hematocrit 45.1 % (40-54); Hemoglobin 14.5 g/dL (13.0-16.5); Lymphocyte # 1.62 X10^3/ul (0.83-4.51); Lymphocyte % 17.7 % (19-41); Mean Corp Hgb Conc 32.2 g/dL (32-36); Mean Corpuscular Hgb 32.2 pg (27.0-32.0); Mean Corpuscular Volume 100.2 fL (80-94); Mean Platelet Vol. 10.3 fl (6.2-12.0); Monocyte# 0.67 X10^3/uL; Monocyte% 7.3 % (0-10); NRBC Flagged by Analyzer 0 % (0-5); Neutrophil # 6.51 X10^3/uL (2.7-7.7); Neutrophil % 71.1 % (47-70); Platelet Count 203 K/mm3 (150-450); RBC Distribution Width CV 13.7 % (11.6-14.6); White Blood Count 9.2 K/mm3 (4.4-11.0)
[2021-10-05 12:59] LABS: Vitamin D,25 Hydroxy 46.5 ng/mL
[2021-10-05 13:21] LABS: ALB/GLOB Ratio 0.9 RATIO (0.9-2.4); AST(SGOT) 22 U/L (15-37); Alanine Aminotransfer ALT/SGPT 21 U/L (16-61); Albumin, Serum 3.5 g/dL (3.2-5.0); Alkaline Phosphatase 105 U/L (45-117); Anion Gap 7 (5-15); BUN 65 mg/dL (7-18); BUN/Creat Ratio 27.5 RATIO (10-20); Calcium,Total 9.3 mg/dL (8.5-10.1); Chloride 109 mmol/L (98-107); Creatinine, Serum 2.36 mg/dL (0.70-1.30); EST Glomerular Filtration Rate 29 mL/min (>60); Est Glom Filt Rate - Afr Amer 35 mL/min (>60); Globulin 3.9 g/dL (2.2-4.2); Glucose 116 mg/dL (74-106); Potassium 4.3 mmol/L (3.5-5.1); Protein, Total 7.4 g/dL (6.4-8.2); Sodium Level 139 mmol/L (136-145); Thyroid Stim Hormone (TSH) 4.44 uIU/mL (0.358-3.74)
== END | disposition home or self-care (01) ==
LOC: POLAB3 10:49
PROVIDERS: PCP Family Medicine Geriatric Medicine; Visit Provider Family Medicine Geriatric Medicine
DX: E11.9 Type 2 diabetes mellitus without complications (principal); E55.9 Vitamin D deficiency, unspecified; I10 Essential (primary) hypertension
CPT/HCPCS: 36415; 80053; 82306; 84443; 85025

== ENCOUNTER → 2021-11-19 | Outpatient (CLI) | payer MEDICARE, SELFPAY ==
[2021-11-19 15:14] LABS: PTHIN 150.5 pg/mL (18.4-80.1)
== END | disposition home or self-care (01) ==
LOC: LAB 14:06
PROVIDERS: PCP Family Medicine Geriatric Medicine; Visit Provider Internal Medicine Nephrology
DX: N25.81 Secondary hyperparathyroidism of renal origin (principal)
CPT/HCPCS: 36415; 83970

== ENCOUNTER → 2022-03-22 | Outpatient (CLI) | payer MEDICARE, SELFPAY ==
[2022-03-22 15:16] LABS: Hematocrit 45.8 % (40-54); Hemoglobin 14.8 g/dL (13.0-16.5); Mean Corp Hgb Conc 32.3 g/dL (32-36); Mean Corpuscular Hgb 32.3 pg (27.0-32.0); Mean Platelet Vol. 9.1 fl (6.2-12.0); Platelet Count 171 K/mm3 (150-450); RBC Distribution Width CV 13.1 % (11.6-14.6); RBC Distribution Width SD 48.3 fl (35.1-43.9); Red Blood Count 4.58 M/mm3 (4.6-6.2); White Blood Count 7.5 K/mm3 (4.4-11.0)
[2022-03-22 15:54] LABS: Albumin, Serum 3.2 g/dL (3.2-5.0); BUN 47 mg/dL (7-18); BUN/Creat Ratio 26.7 RATIO (10-20); Calcium,Total 8.7 mg/dL (8.5-10.1); Chloride 107 mmol/L (98-107); Creatinine, Serum 1.76 mg/dL (0.70-1.30); EST Glomerular Filtration Rate 40 mL/min (>60); Est Glom Filt Rate - Afr Amer 49 mL/min (>60); Glucose 135 mg/dL (74-106); Phosphorus 2.8 mg/dL (2.5-4.9); Potassium 4.5 mmol/L (3.5-5.1); Sodium Level 139 mmol/L (136-145)
[2022-03-23 08:18] LABS: PTHIN 87.5 pg/mL (18.4-80.1)
== END | disposition home or self-care (01) ==
LOC: LAB 14:44
PROVIDERS: PCP Family Medicine Geriatric Medicine; Visit Provider Internal Medicine Nephrology
DX: N18.32 Chronic kidney disease, stage 3b (principal); Z12.5 Encounter for screening for malignant neoplasm of prostate
CPT/HCPCS: 36415; 80069; 83970; 84153; 85027; G0103

== ENCOUNTER → 2022-03-29 | Outpatient (CLI) | payer MEDICARE, SELFPAY ==
[2022-03-29 13:14] LABS: Absolute Lymphocyte Count 1.53 X10^3/uL (0.83-4.51); Absolute Neutrophil Count 4.1 X10^3/uL (2.0-7.7); Basophil# 0.03 X10^3/uL; Basophil% 0.5 % (0-1); Eosinophil# 0.38 X10^3/uL; Eosinophils% 5.8 % (0-5); Hemoglobin 15.6 g/dL (13.0-16.5); Lymphocyte # 1.53 X10^3/ul (0.83-4.51); Lymphocyte % 23.5 % (19-41); Mean Corp Hgb Conc 33.2 g/dL (32-36); Mean Corpuscular Volume 99.4 fL (80-94); Mean Platelet Vol. 9.7 fl (6.2-12.0); Monocyte# 0.46 X10^3/uL; Monocyte% 7.1 % (0-10); NRBC Flagged by Analyzer 0 % (0-5); Neutrophil % 62.8 % (47-70); Platelet Count 208 K/mm3 (150-450); RBC Distribution Width CV 13.2 % (11.6-14.6); RBC Distribution Width SD 48.1 fl (35.1-43.9); Red Blood Count 4.73 M/mm3 (4.6-6.2); White Blood Count 6.5 K/mm3 (4.4-11.0)
[2022-03-29 13:29] LABS: Vitamin D,25 Hydroxy 46.1 ng/mL
[2022-03-29 13:48] LABS: ALB/GLOB Ratio 0.8 RATIO (0.9-2.4); AST(SGOT) 23 U/L (15-37); Alanine Aminotransfer ALT/SGPT 22 U/L (16-61); Albumin, Serum 3.4 g/dL (3.2-5.0); Alkaline Phosphatase 141 U/L (45-117); Anion Gap 3 (5-15); BUN 40 mg/dL (7-18); BUN/Creat Ratio 22.5 RATIO (10-20); Calcium,Total 9.4 mg/dL (8.5-10.1); Chloride 107 mmol/L (98-107); Creatinine, Serum 1.78 mg/dL (0.70-1.30); EST Glomerular Filtration Rate 40 mL/min (>60); Est Glom Filt Rate - Afr Amer 48 mL/min (>60); Globulin 4.2 g/dL (2.2-4.2); Glucose 85 mg/dL (74-106); Potassium 4.1 mmol/L (3.5-5.1); Protein, Total 7.6 g/dL (6.4-8.2); Sodium Level 137 mmol/L (136-145); Thyroid Stim Hormone (TSH) 6.31 uIU/mL (0.358-3.74)
== END | disposition home or self-care (01) ==
LOC: POLAB3 11:07
PROVIDERS: PCP Family Medicine Geriatric Medicine; Visit Provider Family Medicine Geriatric Medicine
DX: I10 Essential (primary) hypertension (principal); E11.9 Type 2 diabetes mellitus without complications; E55.9 Vitamin D deficiency, unspecified
CPT/HCPCS: 36415; 80053; 82306; 84443; 85025

== ENCOUNTER 2022-04-29 14:52 | Outpatient (CLI) | payer MEDICARE, SELFPAY ==
[2022-04-29 16:27] LABS: Albumin, Serum 3.5 g/dL (3.2-5.0); BUN 56 mg/dL (7-18); BUN/Creat Ratio 26.7 RATIO (10-20); Calcium,Total 8.9 mg/dL (8.5-10.1); Chloride 111 mmol/L (98-107); EST Glomerular Filtration Rate 33 mL/min (>60); Est Glom Filt Rate - Afr Amer 40 mL/min (>60); Glucose 102 mg/dL (74-106); Phosphorus 2.5 mg/dL (2.5-4.9); Potassium 4.7 mmol/L (3.5-5.1); Sodium Level 138 mmol/L (136-145); Thyroid Stim Hormone (TSH) 4.37 uIU/mL (0.358-3.74)
== END 2022-04-29 23:59 | disposition home or self-care (01) ==
LOC: LAB 14:54
PROVIDERS: PCP Family Medicine Geriatric Medicine; Visit Provider Family Medicine Geriatric Medicine
DX: N18.32 Chronic kidney disease, stage 3b (principal); E21.3 Hyperparathyroidism, unspecified
CPT/HCPCS: 36415; 80069; 84443

== ENCOUNTER → 2022-09-30 | Outpatient (CLI) | payer MEDICARE, SELFPAY ==
[2022-09-30 15:29] LABS: Protein, Urine (Random) 70.5 mg/dL (<11.9); Protein:Creat Ratio 1237 mg/g CRE (0-200)
[2022-10-03 08:54] LABS: PTHIN 82.8 pg/mL (18.4-80.1)
== END | disposition home or self-care (01) ==
PROVIDERS: PCP Family Medicine Geriatric Medicine; Referring Provider Internal Medicine Nephrology; Visit Provider Internal Medicine Nephrology
DX: E11.22 Type 2 diabetes mellitus with diabetic chronic kidney disease (principal); N25.81 Secondary hyperparathyroidism of renal origin
CPT/HCPCS: 36415; 82570; 83970; 84156

== ENCOUNTER → 2022-10-04 | Outpatient (CLI) | payer MEDICARE, SELFPAY ==
[2022-10-04 13:01] LABS: Absolute Lymphocyte Count 1.26 X10^3/uL (0.83-4.51); Absolute Neutrophil Count 5.4 X10^3/uL (2.0-7.7); Basophil# 0.04 X10^3/uL; Basophil% 0.5 % (0-1); Eosinophil# 0.17 X10^3/uL; Eosinophils% 2.3 % (0-5); Hematocrit 48.4 % (40-54); Hemoglobin 15.4 g/dL (13.0-16.5); Lymphocyte # 1.26 X10^3/ul (0.83-4.51); Lymphocyte % 17.2 % (19-41); Mean Corp Hgb Conc 31.8 g/dL (32-36); Mean Corpuscular Hgb 31.9 pg (27.0-32.0); Mean Corpuscular Volume 100.2 fL (80-94); Mean Platelet Vol. 9.3 fl (6.2-12.0); Monocyte# 0.44 X10^3/uL; NRBC Flagged by Analyzer 0 % (0-5); Neutrophil % 73.7 % (47-70); Platelet Count 188 K/mm3 (150-450); RBC Distribution Width CV 13.7 % (11.6-14.6); RBC Distribution Width SD 50.4 fl (35.1-43.9); Red Blood Count 4.83 M/mm3 (4.6-6.2); White Blood Count 7.3 K/mm3 (4.4-11.0)
[2022-10-04 13:33] LABS: Vitamin D,25 Hydroxy 50.7 ng/mL
[2022-10-04 13:40] LABS: ALB/GLOB Ratio 0.8 RATIO (0.9-2.4); AST(SGOT) 21 U/L (15-37); Alanine Aminotransfer ALT/SGPT 21 U/L (16-61); Albumin, Serum 3.6 g/dL (3.2-5.0); Alkaline Phosphatase 133 U/L (45-117); Anion Gap 5 (5-15); BUN 52 mg/dL (7-18); BUN/Creat Ratio 26.5 RATIO (10-20); Calcium,Total 9.1 mg/dL (8.5-10.1); Chloride 112 mmol/L (98-107); Creatinine, Serum 1.96 mg/dL (0.70-1.30); EST Glomerular Filtration Rate 36 mL/min (>60); Est Glom Filt Rate - Afr Amer 43 mL/min (>60); Globulin 4.3 g/dL (2.2-4.2); Glucose 86 mg/dL (74-106); Potassium 4.8 mmol/L (3.5-5.1); Protein, Total 7.9 g/dL (6.4-8.2); Sodium Level 138 mmol/L (136-145); Thyroid Stim Hormone (TSH) 4.46 uIU/mL (0.358-3.74)
== END | disposition home or self-care (01) ==
LOC: LAB 12:44
PROVIDERS: PCP Family Medicine Geriatric Medicine; Referring Provider Family Medicine Geriatric Medicine; Visit Provider Family Medicine Geriatric Medicine
DX: E11.65 Type 2 diabetes mellitus with hyperglycemia (principal); I10 Essential (primary) hypertension; E55.9 Vitamin D deficiency, unspecified
CPT/HCPCS: 36415; 80053; 82306; 84443; 85025

== ENCOUNTER → 2022-11-17 | Outpatient (CLI) | payer MEDICARE, SELFPAY ==
[2022-11-17 16:47] LABS: BUN 34 mg/dL (7-18); BUN/Creat Ratio 18.6 RATIO (10-20); Calcium,Total 8.7 mg/dL (8.5-10.1); Chloride 108 mmol/L (98-107); Creatinine, Serum 1.83 mg/dL (0.70-1.30); EST Glomerular Filtration Rate 39 mL/min (>60); Est Glom Filt Rate - Afr Amer 47 mL/min (>60); Glucose 90 mg/dL (74-106); Phosphorus 2.9 mg/dL (2.5-4.9); Potassium 4.4 mmol/L (3.5-5.1); Sodium Level 139 mmol/L (136-145)
[2022-11-18 07:28] LABS: PTHIN 111.9 pg/mL (18.4-80.1)
== END | disposition home or self-care (01) ==
LOC: LAB 14:12
PROVIDERS: PCP Family Medicine Geriatric Medicine; Referring Provider Internal Medicine Nephrology; Visit Provider Internal Medicine Nephrology
DX: N18.32 Chronic kidney disease, stage 3b (principal); N25.81 Secondary hyperparathyroidism of renal origin
CPT/HCPCS: 36415; 80069; 83970

== ENCOUNTER → 2023-03-09 | Outpatient (CLI) | payer MEDICARE, SELFPAY ==
[2023-03-09 16:18] LABS: PTHIN 122.3 pg/mL (18.4-80.1)
[2023-03-09 16:19] LABS: Albumin, Serum 3.3 g/dL (3.2-5.0); BUN 35 mg/dL (7-18); BUN/Creat Ratio 21.6 RATIO (10-20); Calcium,Total 8.3 mg/dL (8.5-10.1); Chloride 114 mmol/L (98-107); Creatinine, Serum 1.62 mg/dL (0.70-1.30); EST Glomerular Filtration Rate 44 mL/min (>60); Est Glom Filt Rate - Afr Amer 54 mL/min (>60); Glucose 101 mg/dL (74-106); Phosphorus 2.3 mg/dL (2.5-4.9); Potassium 4.8 mmol/L (3.5-5.1); Sodium Level 141 mmol/L (136-145)
== END | disposition home or self-care (01) ==
LOC: LAB 14:47
PROVIDERS: PCP Family Medicine Geriatric Medicine; Visit Provider Internal Medicine Nephrology
DX: N18.32 Chronic kidney disease, stage 3b (principal); N25.81 Secondary hyperparathyroidism of renal origin
CPT/HCPCS: 36415; 80069; 83970

== ENCOUNTER → 2023-04-03 | Outpatient (CLI) | payer MEDICARE, SELFPAY ==
[2023-04-03 12:36] LABS: Absolute Lymphocyte Count 1.21 X10^3/uL (0.83-4.51); Basophil# 0.05 X10^3/uL; Basophil% 0.6 % (0-1); Eosinophil# 0.21 X10^3/uL; Eosinophils% 2.6 % (0-5); Hemoglobin 13.9 g/dL (13.0-16.5); Lymphocyte # 1.21 X10^3/ul (0.83-4.51); Mean Corp Hgb Conc 31.6 g/dL (32-36); Mean Corpuscular Hgb 31.3 pg (27.0-32.0); Mean Corpuscular Volume 99.1 fL (80-94); Mean Platelet Vol. 9.8 fl (6.2-12.0); Monocyte# 0.52 X10^3/uL; Monocyte% 6.5 % (0-10); NRBC Flagged by Analyzer 0 % (0-5); Neutrophil # 6.03 X10^3/uL (2.7-7.7); Neutrophil % 74.9 % (47-70); Platelet Count 197 K/mm3 (150-450); RBC Distribution Width CV 13.9 % (11.6-14.6); RBC Distribution Width SD 50.3 fl (35.1-43.9); Red Blood Count 4.44 M/mm3 (4.6-6.2); White Blood Count 8.1 K/mm3 (4.4-11.0)
[2023-04-03 12:46] LABS: Vitamin D,25 Hydroxy 45.9 ng/mL
[2023-04-03 12:52] LABS: ALB/GLOB Ratio 0.8 RATIO (0.9-2.4); AST(SGOT) 22 U/L (15-37); Alanine Aminotransfer ALT/SGPT 16 U/L (16-61); Albumin, Serum 3.3 g/dL (3.2-5.0); Alkaline Phosphatase 146 U/L (45-117); Anion Gap 10 (5-15); BUN 41 mg/dL (7-18); BUN/Creat Ratio 21.5 RATIO (10-20); Calcium,Total 8.6 mg/dL (8.5-10.1); Chloride 109 mmol/L (98-107); Creatinine, Serum 1.91 mg/dL (0.70-1.30); EST Glomerular Filtration Rate 37 mL/min (>60); Est Glom Filt Rate - Afr Amer 44 mL/min (>60); Globulin 3.9 g/dL (2.2-4.2); Glucose 172 mg/dL (74-106); Potassium 3.9 mmol/L (3.5-5.1); Protein, Total 7.2 g/dL (6.4-8.2); Sodium Level 138 mmol/L (136-145); Thyroid Stim Hormone (TSH) 2.56 uIU/mL (0.358-3.74)
== END | disposition home or self-care (01) ==
LOC: POLAB3 11:31
PROVIDERS: PCP Family Medicine Geriatric Medicine; Visit Provider Family Medicine Geriatric Medicine
DX: E11.65 Type 2 diabetes mellitus with hyperglycemia (principal); E55.9 Vitamin D deficiency, unspecified; I10 Essential (primary) hypertension
CPT/HCPCS: 36415; 80053; 82306; 84443; 85025

== ENCOUNTER → 2023-08-10 | Outpatient (CLI) | payer MEDICARE, SELFPAY ==
--- NOTE | 2023-08-10 14:15 | RAD_ITS ---
STUDY: X-RAY CHEST REASON FOR EXAM: Male, 73 years old. For PPM implant TECHNIQUE: PA and lateral views of the chest. COMPARISON: 12/09/2015 FINDINGS: Poor inspiration with some bibasilar atelectasis. There is no demonstrated pleural abnormality. Normal size heart. Normal mediastinum and emilia. Normal visualized pulmonary arteries. There is atherosclerotic tortuosity of the aortic arch and descending thoracic aorta. Normal visualized thoracic spine. Normal visualized ribs, clavicles, and shoulders. There is no demonstrated abnormality of the visualized soft tissue structures of the upper abdomen. RAD/Chest PA and Lateral IMPRESSION: Poor inspiration with some bibasilar atelectasis. Electronically Signed: Miguel Mathur MD at 20:03 EDT ,
[2023-08-10 16:38] LABS: Hematocrit 41.3 % (40-54); Hemoglobin 13.2 g/dL (13.0-16.5); Mean Corpuscular Hgb 31.6 pg (27.0-32.0); Mean Corpuscular Volume 98.8 fL (80-94); Mean Platelet Vol. 9.8 fl (6.2-12.0); Platelet Count 228 K/mm3 (150-450); RBC Distribution Width CV 14.7 % (11.6-14.6); Red Blood Count 4.18 M/mm3 (4.6-6.2); White Blood Count 7.3 K/mm3 (4.4-11.0)
[2023-08-10 16:51] LABS: International Normalized Ratio 1.2; Prothrombin Time (Protime)PT. 14.9 SECONDS (11.7-14.9)
[2023-08-10 17:13] LABS: Anion Gap 5 (5-15); BUN 38 mg/dL (7-18); BUN/Creat Ratio 26.6 RATIO (10-20); Chloride 109 mmol/L (98-107); Creatinine, Serum 1.43 mg/dL (0.70-1.30); EST Glomerular Filtration Rate 51 mL/min (>60); Est Glom Filt Rate - Afr Amer 62 mL/min (>60); Glucose 97 mg/dL (74-106); Potassium 4.7 mmol/L (3.5-5.1); Sodium Level 137 mmol/L (136-145)
== END | disposition home or self-care (01) ==
PROVIDERS: PCP Family Medicine Geriatric Medicine; Referring Provider Nurse Practitioner Gerontology; Visit Provider Nurse Practitioner Gerontology
DX: I44.1 Atrioventricular block, second degree (principal); R00.1 Bradycardia, unspecified
CPT/HCPCS: 36415; 71046; 80048; 81001; 85027; 85610

== ENCOUNTER 2023-08-21 14:37 | Observation (INO) | payer MEDICARE, SELFPAY ==
[2023-08-21 11:32] VITALS: BMI 33.9
--- NOTE | 2023-08-21 14:36 | CL.IE_ITS ---
Patient: BETHANY PARR Study Date: 08/21/2023 Performing: Sunny Finnegan MD : 1950 Age: 73 Gender: male PROCEDURES PERFORMED [id number])INITIAL PACER INSERT+DUAL LEADS INDICATIONS Mobitz (type II) AV block PROCEDURE DETAILS The patient was brought to the Catheterization Lab in the postabsorptive nonsedated state. Informed consent was obtained prior to the procedure. Local anesthetic was given subcutaneously to the left upper chest area with Lidocaine 2%. Access was achieved and a guidewire was advanced into the left subclavian vein. Incision was made to the left upper chest. A peel-away sheath was inserted into the left subclavian vein. PPM ventricular lead was inserted / positioned to right ventricular apex. PPM ventricular lead testing performed. PPM ventricular lead testing performed. PPM atrial lead was inserted / positioned to the right atrial appendage. The Ventricular PM lead sutured in place with 2-0 Silk. The Atrial lead sutured in place with 2-0 Silk. PPM atrial lead was repositioned and checked. Device pocket was irrigated with antibiotic. PPM generator was attached to the lead(s) and inserted into the pocket. Subcutaneous closure was completed. Skin closure was completed. The patient tolerated the procedure well. Estimated Blood Loss: 3 ml's IMPLANTED / EX-PLANTED DEVICES IMPLANTED DEVICE(S): PPM Generator - Motorized [employer] Commanding Officer: [employer], Model # [id number] , Serial # [id number] PPM Ventricular lead - Motorized [employer] Commanding Officer: [employer], Model # [id number] , Serial # [id number] PPM Atrial lead - Motorized [employer] Commanding Officer: [employer], Model # [id number] , Serial # [id number] DEVICE PARAMETERS ATRIAL LEAD PARAMETERS: P wave- 1.5 (mV) threshold- 2.5 (V) impedence- 722 (OHMS) VENTRICULAR LEAD PARAMETERS: R wave- 8.3 (mV) threshold- .5 (V) impedence- 742 (OHMS) DEVICE PARAMETERS: Mode- ddd CONCLUSIONS / RECOMMENDATIONS Device Conclusions: Successful implantation of a dual chamber pacemaker battery change and replacement Device Recommendations: Follow up with Primary Care Physician PROCEDURE MEDICATIONS Versed 1 mg IV Fentanyl 50 mcg IV Versed 1 mg IV Versed 1 mg IV Versed 1 mg IV Oxygen: 2 L/min via nasal cannula Ancef 2 Gm IV @ 08/21/2023 13:24:23 Signed By Sunny Finnegan MD On 08/21/2023 14:35:37 Sunny Finnegan MD
[2023-08-21 15:00] VITALS: BP 152/81; PULSE 67; RESP 12; TEMP 36.3; O2SAT 100
[2023-08-21 15:34] VITALS: BP 152/81; PULSE 67; RESP 12; TEMP 36.3; O2SAT 100
[2023-08-21] MEDS: Atorvastatin Calcium 40 MG Tablet PO (20:32)
--- NOTE | 2023-08-21 20:43 | NURSING ---
This RN asked patient if he would wear SCD's. Explained to patient that they are used to prevent blood clots when you aren't up and moving as much as you might normally be at home. Patient refused and stated that he would not be here that long.
[2023-08-21 21:00] VITALS: BP 173/71; PULSE 69; RESP 17; TEMP 36.2; O2SAT 100
--- NOTE | 2023-08-21 22:19 | NURSING ---
Offered to straight cath patient tonight. Patient refused and states that he has not been drinking anything. I let patient know that at any point tonight, if he is ready to be straight cathed that he can let me know. Patient expressed understanding.
[2023-08-22 03:00] VITALS: BP 150/76; PULSE 77; RESP 16; TEMP 36.6; O2SAT 94
[2023-08-22] MEDS: Levothyroxine 75 MCG Tablet PO (05:12)
--- NOTE | 2023-08-22 05:55 | RAD_ITS ---
INDICATION: POST PERMANANT ICD/PACEMAKER -- INSPIRATION/EXPIRATION, ARMS DOWN EXAMINATION/TECHNIQUE: X-RAY - XR Chest 3 Views COMPARISON: Prior study dated: 08/10/2023 FINDINGS: LINES/DEVICES: Left chest wall pacer in place with leads over the right atrium and right ventricle. LUNGS: The lungs are well expanded. No consolidation or edema. Small pleural effusions. No pneumothorax. MEDIASTINUM AND CARDIOVASCULAR STRUCTURES: Cardiac silhouette not enlarged. Central airways and mediastinal contour are unremarkable. BONES AND SOFT TISSUES: No acute abnormality. RAD/Chest 3 View IMPRESSION: Left chest wall pacer with leads over the right atrium and right ventricle. No pneumothorax. Small pleural effusions. Electronically Signed: Pelon Batres MD at 5:24 EDT ,
--- NOTE | 2023-08-22 07:39 | PCM.PN.CARD ---
Subjective Subjective Patient seen and evaluated. Appears to doing well. Objective Data Vital Signs: Vital Signs Temp Pulse Resp BP Pulse Ox O2 Del Method 97.8 F 77 16 150/76 H 94 Room Air 08/22/23 03:00 08/22/23 03:00 08/22/23 03:00 08/22/23 03:00 08/22/23 03:00 08/22/23 03:00 Oxygen Delivery Method Room Air Weight: 218 lb 4.122 oz Body Mass Index (BMI) 33.9 Intake & Output: Intake and Output for Last 24 Hours 08/20/23 08/21/23 08/22/23 23:59 23:59 23:59 Intake Total 240 / 340 225 / 225 Balance 240 / 340 225 / 225 Cardiology Labs/Tests Rhythm: EKG: ECHO: Stress Test: Cardiac Cath: PCI: CT Surgery: Holter monitor: EPS: PPM: CXR: Chest CT Scan: Radiography Diagnostic Testing: Radiology Impression Chest X-Ray 08/22/23 05:55 IMPRESSION: Left chest wall pacer with leads over the right atrium and right ventricle. No pneumothorax. Small pleural effusions. Electronically Signed: Pelon Batres MD at 5:24 EDT Reading Location ID and State: [facility] / [place] Tel , Service support , Physical Exam Const alert, oriented x3 and no apparent distress General Appearance: cooperative HEENT hearing grossly normal bilaterally Head and Scalp: atraumatic Eyes EOMs intact bilaterally Neck General: normal visual inspection Chest inspection of chest normal and palpation of chest normal Resp normal respiratory effort Auscultation: clear to auscultation bilaterally Cardio regular rate, regular rhythm, S1 normal heart sound and S2 normal heart sound Jugular Venous Distention: JVD GI normal to inspection, nondistended, normoactive bowel sounds Extremity normal capillary refill and no pedal edema Peripheral Pulses: Yes pulses 2+ throughout and femoral pulses present Skin no rashes or lesions noted Neuro oriented x3 and CN's II-XII intact bilaterally Psych Appearance: grossly normal and appropriate Assessment & Plan Assessment/Plan (1) Second degree AV block, Mobitz type II: PLAN: Status post pacemaker implantation for second-degree type II heart block. Chest x-ray appears to be unremarkable. After pacemaker has been interrogated patient will be discharged for outpatient follow-up.
[2023-08-22 08:45] VITALS: BP 153/80; PULSE 76; RESP 15; TEMP 36.3; O2SAT 95
--- NOTE | 2023-08-22 09:10 | DCINST_ITS ---
Discharge Instructions Diet Discharge Diet: No restrictions (as you feel able. No excessive stretching. No lifting your arm over your head (keep elbow below shoulder level) until seen for your pacemaker check. Do not lift your elbow away from your side until you are seen for your first visit. Keep the arm sling on if it helps remind you not to lift your arm.) Activity Discharge Activity: May Not Drive May shower in (days): 2 Additional Activity Instructions:: May shower or bathe on [day 3]. Do not scrub the incision or soak in the tub. Just wash with soap and let the water run over the incision. Gently pat dry with towel. Medications: Take your pain medication as directed. Refer to your discharge instruction sheet for a list of medications you are to take. Dressing / Incision Call your doctor if your incision/area has: Continuous Slow Oozing, Sudden Increased Bleeding, Increased Pain/ Swelling, Increased Redness, Foul Smelling Discharge and Swelling at the incision site Call your doctor if you observe: Fever of 101 or Higher, Shortness of breath, Dizziness, Fainting spells, Swelling in the ankles, Chest pain, Prolonged hiccupping and Increased palpitations (irregular heartbeat) Suture Line Care: Avoid Pulling/Pushing and Avoid Pinching/Bending Cleanse incision/area with: Keep Dressing Clean & Dry Additional Dressing/Incision Instructions:: When dressing is removed, wash and dry incision. Keep covered with a light bandage if it is rubbing against your clothing. Do not cover the incision with an airtight bandage. Change the bandage daily. Do not remove steri strips. The strips will fall off on their own. Follow Up Care Please Follow Up With: Sunny Finnegan MD When: Pacer follow-up on August 27 at 2 PM Test Results: Test results from this visit will be discussed in further detail at your follow- up appointment, if applicable. Discharge Plan Admission Admit Date/Time: 08/21/23 14:37 Attending Provider: Sunny Finnegan Primary Care Provider: Esequiel Dixon Chi Discharge Orders/Prescriptions Prescriptions: No Action allopurinol 100 mg tablet 100 mg PO DAILY levothyroxine 75 mcg capsule 75 mcg PO DAILY cholecalciferol (vitamin D3) 25 mcg (1,000 unit) capsule 25 mcg PO DAILY furosemide 20 mg tablet 20 mg PO DAILY calcitriol 0.5 mcg capsule 0.5 mcg PO QWEEK atorvastatin 40 MG tablet 40 mg PO QHS Patient Comments: lower cholesterol losartan-hydrochlorothiazide 1 EACH tablet 1 ea PO DAILY Referrals / Follow Up: Esequiel Dixon Chi, MD [Primary Care Provider] -
--- NOTE | 2023-08-22 09:46 | PHA.DC.MR.R ---
Pharmacy [place] Med Reconciliation Pharmacy Service has performed discharge medication reconciliation for this patient. The patient's discharge medication list was reviewed for discrepancies and discrepancies were resolved. Medications at Discharge Home Medications atorvastatin 40 mg tablet 40 mg PO QHS cholesterol 02/19/16 losartan 50 mg-hydrochlorothiazide 12.5 mg tablet 1 ea PO DAILY blood pressure 02/19/16 allopurinol 100 mg tablet 100 mg PO DAILY gout 06/21/23 calcitriol 0.5 mcg capsule 0.5 mcg PO QWEEK bone health 06/21/23 cholecalciferol (vitamin D3) 25 mcg (1,000 unit) capsule 25 mcg PO DAILY vitamin 06/21/23 furosemide 20 mg tablet 20 mg PO DAILY diuretic 06/21/23 levothyroxine 75 mcg capsule 75 mcg PO DAILY thyroid 06/21/23
--- NOTE | 2023-08-22 11:00 | CASEMGMT ---
RN CM Face to Face with patient for initial transition planning/care coordination assessment. RN CM introduced self and role at [facility]. Patient lying in bed, alert and oriented. Patient willing to participate in assessment and is able to answer all questions appropriately. Care providers, pharmacy, and demographics verified. PCP: Zack Specialists: Sivan, automotive parts manager; Francesco nephrology Preferred Pharmacy: [facility] Insurance: [facility] Prescription Benefit: yes Living Will/HPOA: none LNOK: ex Living Arrangements: Patient lives alone in a 2 story home with bed and bath on first floor, 3 steps and railing to enter the home. Per patient, he spoke with local EMT and they are willing to assist patient into the home. Patient states he was independent at home. Transportation: self, ex DME/HHC: Patient has cane, hip kit, crutches, and rollator at home. No previous HHC or SNF Patient wishes to discharge home. Therapy in room at time of assessment recommending patient go to SNF/RU for additional therapy for safety, patient states he will think about it. Patient states he has no further needs or concerns at this time. CM to follow for discharge planning needs that may arise. Disposition Plan: TBD, anticipate home vs SNF/RU pending patient's decision. Shannon DHALIWAL, RN, CM
--- NOTE | 2023-08-22 12:26 | CASEMGMT ---
ELIGIO ABBOTT updated by nursing that patient is wanting to go home at discharge. ELIGIO ABBOTT in to discuss therapy recommendations regarding rehab. Patient states he does not want to go to rehab or SNF and would like to go home. ELIGIO ABBOTT inquired about HHC, pateint refusing HHC or outpatient therapy. Patient aware of recommendations or raised toilet seat and shower chair and will see if ex- will stop by store to pickup. ELIGIO ABBOTT educated patient that should he reconsider HHC to follow up with PCP, patient voiced understanding. [facility], [facility], and [facility]. Patient denied further questions or concerns.
[2023-08-22 13:40] VITALS: BP 148/72; PULSE 68; RESP 12; TEMP 36.2; O2SAT 100
== END 2023-08-22 09:13 | disposition home or self-care (01) ==
LOC: PCU 15:10
PROVIDERS: Admitting Provider Internal Medicine Cardiovascular Disease; PCP Family Medicine Geriatric Medicine; Referring Provider Internal Medicine Cardiovascular Disease; Visit Provider Internal Medicine Cardiovascular Disease
DX: Z45.018 Encounter for adjustment and management of other part of cardiac pacemaker (principal); E11.40 Type 2 diabetes mellitus with diabetic neuropathy, unspecified; E11.22 Type 2 diabetes mellitus with diabetic chronic kidney disease; N18.32 Chronic kidney disease, stage 3b; I44.1 Atrioventricular block, second degree; I12.9 Hypertensive chronic kidney disease with stage 1 through stage 4 chronic kidney disease, or unspecified chronic kidney disease; R00.1 Bradycardia, unspecified; I45.10 Unspecified right bundle-branch block; F17.200 Nicotine dependence, unspecified, uncomplicated; Z79.899 Other long term (current) drug therapy; Z79.890 Hormone replacement therapy; E03.9 Hypothyroidism, unspecified
CPT/HCPCS: 33208; 71047; 97162; 97166; 99152; 99153; 99221; 99406; J7040; J7050; A4216; C1894; G0378

== ENCOUNTER → 2023-09-26 | Outpatient (CLI) | payer MEDICARE, SELFPAY ==
[2023-09-26 13:05] LABS: Protein, Urine (Random) 35.3 mg/dL (<11.9); Protein:Creat Ratio 648 mg/g CRE (0-200)
[2023-09-26 13:29] LABS: Albumin, Serum 3.3 g/dL (3.2-5.0); BUN 39 mg/dL (7-18); BUN/Creat Ratio 23.9 RATIO (10-20); Calcium,Total 9.1 mg/dL (8.5-10.1); Chloride 113 mmol/L (98-107); Creatinine, Serum 1.63 mg/dL (0.70-1.30); EST Glomerular Filtration Rate 44 mL/min (>60); Est Glom Filt Rate - Afr Amer 53 mL/min (>60); Glucose 108 mg/dL (74-106); Phosphorus 2.7 mg/dL (2.5-4.9); Potassium 5.3 mmol/L (3.5-5.1); Sodium Level 139 mmol/L (136-145)
== END | disposition home or self-care (01) ==
LOC: LAB 11:38
PROVIDERS: PCP Family Medicine Geriatric Medicine; Referring Provider Internal Medicine Nephrology; Visit Provider Internal Medicine Nephrology
DX: E11.22 Type 2 diabetes mellitus with diabetic chronic kidney disease (principal); N18.32 Chronic kidney disease, stage 3b
CPT/HCPCS: 36415; 80069; 82570; 84156

== ENCOUNTER → 2024-04-02 | Outpatient (CLI) | payer MEDICARE, SELFPAY ==
[2024-04-02 12:53] LABS: Hematocrit 39.8 % (40-54); Hemoglobin 13.1 g/dL (13.0-16.5); Mean Corp Hgb Conc 32.9 g/dL (32-36); Mean Corpuscular Hgb 32.6 pg (27.0-32.0); Mean Platelet Vol. 9.3 fl (6.2-12.0); Platelet Count 178 K/mm3 (150-450); RBC Distribution Width CV 13.6 % (11.6-14.6); RBC Distribution Width SD 49.3 fl (35.1-43.9); Red Blood Count 4.02 M/mm3 (4.6-6.2); White Blood Count 7.6 K/mm3 (4.4-11.0)
[2024-04-02 13:09] LABS: PTHIN 138.5 pg/mL (18.4-80.1)
[2024-04-02 13:19] LABS: Albumin, Serum 3.2 g/dL (3.2-5.0); BUN 54 mg/dL (7-18); BUN/Creat Ratio 29.8 RATIO (10-20); Calcium,Total 8.8 mg/dL (8.5-10.1); Chloride 110 mmol/L (98-107); Creatinine, Serum 1.81 mg/dL (0.70-1.30); EST Glomerular Filtration Rate 39 mL/min (>60); Est Glom Filt Rate - Afr Amer 47 mL/min (>60); Glucose 128 mg/dL (74-106); Phosphorus 2.4 mg/dL (2.5-4.9); Potassium 4.6 mmol/L (3.5-5.1); Sodium Level 138 mmol/L (136-145)
[2024-04-02 14:09] LABS: Protein, Urine (Random) 33.9 mg/dL (<11.9); Protein:Creat Ratio 755 mg/g CRE (0-200)
== END | disposition home or self-care (01) ==
LOC: LAB 12:22
PROVIDERS: PCP Family Medicine Geriatric Medicine; Referring Provider Internal Medicine Nephrology; Visit Provider Internal Medicine Nephrology
DX: E11.22 Type 2 diabetes mellitus with diabetic chronic kidney disease (principal); N18.32 Chronic kidney disease, stage 3b; N25.81 Secondary hyperparathyroidism of renal origin
CPT/HCPCS: 36415; 80069; 82570; 83970; 84156; 85027

== ENCOUNTER → 2024-04-09 | Outpatient (CLI) | payer MEDICARE, SELFPAY ==
[2024-04-09 10:52] LABS: Absolute Lymphocyte Count 1.21 X10^3/uL (0.83-4.51); Absolute Neutrophil Count 6.8 X10^3/uL (2.0-7.7); Basophil# 0.04 X10^3/uL; Basophil% 0.5 % (0-1); Eosinophil# 0.22 X10^3/uL; Eosinophils% 2.5 % (0-5); Hematocrit 41.7 % (40-54); Hemoglobin 13.8 g/dL (13.0-16.5); Lymphocyte # 1.21 X10^3/ul (0.83-4.51); Lymphocyte % 13.8 % (19-41); Mean Corp Hgb Conc 33.1 g/dL (32-36); Mean Corpuscular Hgb 32.5 pg (27.0-32.0); Mean Corpuscular Volume 98.3 fL (80-94); Monocyte# 0.51 X10^3/uL; Monocyte% 5.8 % (0-10); NRBC Flagged by Analyzer 0 % (0-5); Neutrophil # 6.76 X10^3/uL (2.7-7.7); Neutrophil % 77.1 % (47-70); Platelet Count 203 K/mm3 (150-450); RBC Distribution Width CV 13.4 % (11.6-14.6); RBC Distribution Width SD 48.6 fl (35.1-43.9); Red Blood Count 4.24 M/mm3 (4.6-6.2); White Blood Count 8.8 K/mm3 (4.4-11.0)
[2024-04-09 11:32] LABS: ALB/GLOB Ratio 0.8 RATIO (0.9-2.4); AST(SGOT) 25 U/L (15-37); Alanine Aminotransfer ALT/SGPT 16 U/L (16-61); Albumin, Serum 3.5 g/dL (3.2-5.0); Alkaline Phosphatase 151 U/L (45-117); Anion Gap 6 (5-15); BUN 38 mg/dL (7-18); BUN/Creat Ratio 22.2 RATIO (10-20); Calcium,Total 9.3 mg/dL (8.5-10.1); Chloride 107 mmol/L (98-107); Creatinine, Serum 1.71 mg/dL (0.70-1.30); EST Glomerular Filtration Rate 42 mL/min (>60); Est Glom Filt Rate - Afr Amer 50 mL/min (>60); Globulin 4.3 g/dL (2.2-4.2); Glucose 101 mg/dL (74-106); Potassium 4.5 mmol/L (3.5-5.1); Protein, Total 7.8 g/dL (6.4-8.2); Sodium Level 135 mmol/L (136-145)
[2024-04-09 11:34] LABS: Vitamin D,25 Hydroxy 40.8 ng/mL
== END | disposition home or self-care (01) ==
LOC: POLAB3 10:37
PROVIDERS: PCP Family Medicine Geriatric Medicine; Visit Provider Family Medicine Geriatric Medicine
DX: I10 Essential (primary) hypertension (principal); E11.65 Type 2 diabetes mellitus with hyperglycemia; E55.9 Vitamin D deficiency, unspecified
CPT/HCPCS: 36415; 80053; 82306; 84443; 85025

== ENCOUNTER → 2024-09-24 | Outpatient (CLI) | payer MEDICARE, SELFPAY ==
[2024-09-24 16:09] LABS: Absolute Lymphocyte Count 1.46 X10^3/uL (0.83-4.51); Absolute Neutrophil Count 4.6 X10^3/uL (2.0-7.7); Basophil# 0.04 X10^3/uL; Basophil% 0.6 % (0-1); Eosinophils% 2.9 % (0-5); Hematocrit 38.7 % (40-54); Hemoglobin 12.9 g/dL (13.0-16.5); Lymphocyte # 1.46 X10^3/ul (0.83-4.51); Lymphocyte % 21.4 % (19-41); Mean Corp Hgb Conc 33.3 g/dL (32-36); Mean Corpuscular Hgb 32.7 pg (27.0-32.0); Mean Platelet Vol. 9.6 fl (6.2-12.0); Monocyte# 0.46 X10^3/uL; Monocyte% 6.7 % (0-10); NRBC Flagged by Analyzer 0 % (0-5); Neutrophil # 4.64 X10^3/uL (2.7-7.7); Neutrophil % 68.1 % (47-70); Platelet Count 183 K/mm3 (150-450); RBC Distribution Width CV 13.2 % (11.6-14.6); RBC Distribution Width SD 47.1 fl (35.1-43.9); Red Blood Count 3.95 M/mm3 (4.6-6.2); White Blood Count 6.8 K/mm3 (4.4-11.0)
[2024-09-24 16:20] LABS: Hemoglobin A1c 6.1 % (<=5.6)
[2024-09-24 17:07] LABS: Cholesterol 91 mg/dL (<=200); High Density Lipoprotein 39 mg/dL; Low Density Lipoprotein Calc. 41 mg/dL; Triglycerides 54 mg/dL; Uric Acid 5.6 mg/dL (3.5-7.2); Very Low Density Lipoprotein 11 mg/dL (5-40); Vitamin D,25 Hydroxy 41.2 ng/mL (30-100); cholesterol:hdl ratio screen 2.34
[2024-09-24 17:11] LABS: ALB/GLOB Ratio 1.1 RATIO (0.9-2.4); AST(SGOT) 26 U/L (<=37); Alanine Aminotransfer ALT/SGPT 10 U/L (<=46); Albumin, Serum 3.7 g/dL (3.4-4.8); Alkaline Phosphatase 169 U/L (40-129); Anion Gap 12 (5-15); BUN 32 mg/dL (4-19); BUN/Creat Ratio 17.6 RATIO (10-20); Calcium,Total 8.7 mg/dL (7.6-11.0); Carbon Dioxide 19.4 mmol/L (21.0-32.0); Chloride 103 mmol/L (98-108); Creatinine, Serum 1.84 mg/dL (0.70-1.20); EST Glomerular Filtration Rate 38 (>60); Globulin 3.3 g/dL (2.2-4.2); Glucose 98 mg/dL (70-99); Potassium 4.6 mmol/L (3.3-5.1); Sodium Level 135 mmol/L (133-145)
== END | disposition home or self-care (01) ==
LOC: LAB 14:34
PROVIDERS: PCP Family Medicine Geriatric Medicine; Referring Provider Family Medicine Geriatric Medicine; Visit Provider Family Medicine Geriatric Medicine
DX: I10 Essential (primary) hypertension (principal); E11.65 Type 2 diabetes mellitus with hyperglycemia; E55.9 Vitamin D deficiency, unspecified; E78.5 Hyperlipidemia, unspecified; M10.9 Gout, unspecified
CPT/HCPCS: 36415; 80053; 80061; 82306; 83036; 84443; 84550; 85025

== ENCOUNTER → 2025-04-10 | Outpatient (CLI) | payer MEDICARE, SELFPAY ==
[2025-04-10 11:54] LABS: Hematocrit 40.7 % (40-54); Hemoglobin 13.5 g/dL (13.0-16.5); Immature Granulocytes Count 0.020 X10^3/uL (0.0-0.0); Mean Corp Hgb Conc 33.2 g/dL (32-36); Mean Corpuscular Volume 99.3 fL (80-94); Mean Platelet Vol. 9.0 fl (6.2-12.0); NRBC Flagged by Analyzer 0 % (0-5); Platelet Count 194 K/mm3 (150-450); RBC Distribution Width CV 13.5 % (11.6-14.6); RBC Distribution Width SD 49.1 fl (35.1-43.9); Red Blood Count 4.10 M/mm3 (4.6-6.2); White Blood Count 9.5 K/mm3 (4.4-11.0)
[2025-04-10 12:49] LABS: PTHIN 43 pg/mL (11-61)
[2025-04-10 13:05] LABS: Microalbumin,Random Urine 22.2 mg/L (<20 mg/L)
[2025-04-10 13:06] LABS: Creatinine, Urine (random) 26.40 mg/dL (39.00-259.00); Protein, Urine (Random) 13.8 mg/dL (0.0-12.0); Protein:Creat Ratio 523 mg/g CRE (0-200)
[2025-04-10 13:35] LABS: Cholesterol 94 mg/dL (<=200); Low Density Lipoprotein Calc. 38 mg/dL; Triglycerides 48 mg/dL; Uric Acid 5.5 mg/dL (3.5-7.2); Very Low Density Lipoprotein 10 mg/dL (5-40); Vitamin D,25 Hydroxy 46.1 ng/mL (30-100); cholesterol:hdl ratio screen 2.14
[2025-04-10 19:22] LABS: Xtra Tube Kwok EXTRA TUBE
== END | disposition home or self-care (01) ==
PROVIDERS: Internal Medicine Nephrology; PCP Family Medicine Geriatric Medicine; Referring Provider Family Medicine Geriatric Medicine; Visit Provider Family Medicine Geriatric Medicine
DX: I12.9 Hypertensive chronic kidney disease with stage 1 through stage 4 chronic kidney disease, or unspecified chronic kidney disease (principal); E11.22 Type 2 diabetes mellitus with diabetic chronic kidney disease; E11.65 Type 2 diabetes mellitus with hyperglycemia; N18.9 Chronic kidney disease, unspecified; E03.9 Hypothyroidism, unspecified; E55.9 Vitamin D deficiency, unspecified; E78.5 Hyperlipidemia, unspecified; M10.9 Gout, unspecified; N25.81 Secondary hyperparathyroidism of renal origin
CPT/HCPCS: 36415; 80061; 82043; 82306; 82570; 83036; 83970; 84156; 84443; 84550; 85025